=== PATIENT | female | born 1990 | race American Indian/Alaskan Native ===

== ENCOUNTER 2016-07-22 16:28 | Emergency (ER) | payer SELFPAY ==
--- NOTE | 2016-07-22 19:25 | Emergency Department Report ---
HPI - General Chief Complaint: Dental/Oral Time Seen by Provider: 07/22/16 19:24 - HPI HPI: Patient here reports that she has tooth ache to left lower back. And he went to the dentist today and he couldn't pull her tooth because they told her that her blood pressure was elevated at 160/108 and she has to go to the emergency room to get that taken care of. Patient says she was having headache but the headache feels like his Coumadin from her tenderness. Denies any nausea or vomiting her blood pressure in triage is 150/103 . Headache is located to left forehead. The fever itself, neck pain or stiffness. Pain is 10 out of 10 to left lower back to us and headache to 2 out of 10 and achy since that she had a history of high blood pressure in 2014 during her she was preeclamptic but that had resolved after she had a baby. At the time she was on labetalol and Procardia but she has not been on any medication because her blood pressure has been stable. Denies any drooling or sore throat. No chest pain or shortness of breath. No dizziness or visual difficulties. No over-the- counter medication taken for patient ED Past Medical Hx - Past Medical History Previous Medical History?: Yes Hx Hypertension: Yes (PIH) Hx Congestive Heart Failure: No Hx Diabetes: No Hx Deep Vein Thrombosis: No Hx Renal Disease: No Hx Sickle Cell Disease: No Hx Seizures: No Hx Asthma: No Hx COPD: No Hx HIV: No Additional medical history: PREECLAMPSIA with delivery 08/28/2014 - Surgical History Past Surgical History?: Yes Additional Surgical History: CS - Family History Family history: hypertension - Social History Smoking Status: Never Smoker Substance Use Type: None - Medications Home Medications: Home Medications Medication Instructions Recorded Confirmed Last Taken Type Vit #76/Iron,Carb/FA 1 each PO QDAY #30 tablet 04/03/14 09/03/14 1 Day Ago Rx [Prenatabs Rx Tablet] Ferrous Sulfate [Feosol 325 MG tab] 325 mg PO TID #90 tablet 08/28/14 09/03/14 1 Day Ago Rx Fluconazole [Diflucan 200] 200 mg PO QDAY #1 tablet 08/28/14 09/03/14 1 Day Ago Rx Ibuprofen [Motrin 800 MG tab] 800 mg PO Q8HR PRN #90 tablet 08/28/14 09/03/14 1 Day Ago Rx oxyCODONE /ACETAMINOPHEN [Percocet 1 tab PO Q6HR PRN #30 tablet 08/28/14 1 Day Ago Rx 5/325 mg] Labetalol HCl [Trandate TAB] 300 mg PO BID 30 Days 08/31/14 09/03/14 1 Day Ago Rx NIFEdipine XL [Procardia Xl] 60 mg PO QDAY 30 Days 08/31/14 09/03/14 1 Day Ago Rx Acetaminophen/Codeine [Tylenol 1 tab PO Q6H PRN #12 tab 07/22/16 Unknown Rx /Codeine # 3 tab] Amoxicillin [Amoxicillin TAB] 875 mg PO BID #20 tablet 07/22/16 Unknown Rx Ibuprofen [Motrin] 600 mg PO Q8H PRN #15 tablet 07/22/16 Unknown Rx ED Review of Systems ROS: Stated complaint: TOOTH PAIN/ELEVATED BP Other details as noted in HPI Comment: All other systems reviewed and negative Constitutional: denies: chills, fever Eyes: denies: eye pain, eye discharge, vision change ENT: dental pain. denies: ear pain, throat pain, hearing loss, congestion Respiratory: no symptoms reported Cardiovascular: denies: chest pain, palpitations, edema, syncope Gastrointestinal: denies: abdominal pain, nausea, vomiting Musculoskeletal: denies: back pain, arthralgia Skin: denies: rash Neurological: headache. denies: weakness, numbness, paresthesias, confusion, abnormal gait, vertigo Physical Exam - Physical Exam Vital Signs: Vital Signs 07/22/16 17:09 Temperature 98.4 F Pulse Rate 77 Respiratory 16 Rate Blood Pressure 150/103 O2 Sat by Pulse 100 Oximetry Vital Signs 07/22/16 07/22/16 17:09 21:49 Temperature 98.4 F Pulse Rate 77 Respiratory 16 Rate Blood Pressure 150/103 Blood Pressure 146/92 [Left] O2 Sat by Pulse 100 Oximetry General: This is a 26-year-old female well-nourished well-developed in no acute distress. Physical Exam: Head: Normocephalic atraumatic. Mouth: Moist, no pharyngeal exudate or erythema. Uvula is midline and oral airway is patent. No facial swelling. No peritonsillar abscesses. Patient with positive dental caries without any gingival enlargement. Tooth #18 with fracture and cavity. Tender to palpation around tenderness without any cellulitis. No pulp exposure. Neck: Supple, no C-spine tenderness, no tracheal deviation. Nontender to palpate. no adenopathy Abdomen: Soft, nontender to palpate in all quadrants, normal bowel sounds in all quadrant and negative CVA tenderness bilaterally.Back: No vertebral or paraspinal tenderness. No saddle anesthesia. Patient able to ambulate without any difficulties. Negative SLR bilaterally. Neurological: GCS of 15, alert and oriented 3. Speech is clear and fluid. Normal gait. No motor or sensory deficit. Normal reflexes. No facial drooping. No pronator drift and negative Romberg. Eyes: Bilateral pupils equal and reactive to light, bilateral EOM intact. Bilateral sclera and conjunctiva without injection. Normal accommodation. No nystagmus Lungs: Clear to auscultate bilaterally no rhonchi wheezes or rales. Normal work of breathing extremity; No CCE. +2 pulses. No neurovascular compromise Cardiovascular: S1-S2, regular rate rhythm. No murmurs. Skin: clean Dry and intact no rash no lesions Psych: Normal mood and behavior ED Course Vital Signs 07/22/16 17:09 Temperature 98.4 F Pulse Rate 77 Respiratory 16 Rate Blood Pressure 150/103 O2 Sat by Pulse 100 Oximetry Vital Signs 07/22/16 07/22/16 17:09 21:49 Temperature 98.4 F Pulse Rate 77 Respiratory 16 Rate Blood Pressure 150/103 Blood Pressure 146/92 [Left] O2 Sat by Pulse 100 Oximetry - Reevaluation(s) Reevaluation #1: 07/22/16 21:58 Patient blood pressure was stable. She was given Percocet one tablet for dental pain. ED Medical Decision Making - Medical Decision Making ED course: Discussed with patient that her blood pressure was elevated because she was in pain and after given Percocet one tablet 5/325 mg in the emergency room and recheck of her blood pressure blood pressure went down. That she needs to keep a log of her blood pressure and since he did not have a primary care physician to call if outside Medical Center and schedule an appointment to be followed up and a blood pressure readings to primary care visit. I told her if her blood pressure remains elevated and started on medication but for now she does not need blood pressure medication. Discussed the patient and I'll put her on medication for pain and antibiotic. Discharged home in stable condition understanding the diagnosis and treatment plan and discharged home with prescription for Tylenol No. 3, Motrin and amoxicillin Critical care attestation.: If time is entered above; I have spent that time in minutes in the direct care of this critically ill patient, excluding procedure time. ED Disposition Clinical Impression: Toothache, Dental caries, Elevated blood-pressure reading without diagnosis of hypertension Fracture, tooth Qualifiers: Encounter type: initial encounter Fracture type: closed Qualified Code(s): S02.5XXA - Fracture of tooth (traumatic), initial encounter for closed fracture Disposition: - TO HOME OR SELFCARE Is pt being admited?: No Does the pt Need Aspirin: No Condition: Stable Instructions: Heart Healthy Diet (ED), Low Sodium Diet (ED), Hypertension (ED) , Dental Caries (ED), Toothache (ED) Additional Instructions: Do not take Tylenol 3 when he is driving or operating heavy machinery out of this medication will cause drowsiness Please reschedule appointment to see a dentist. Take Antibiotic as prescribed Monitor blood pressure daily and take him [facility] primary care visit. Prescriptions: Acetaminophen/Codeine [Tylenol /Codeine # 3 tab] 1 tab PO Q6H PRN #12 tab PRN Reason: Toothache Amoxicillin [Amoxicillin TAB] 875 mg PO BID #20 tablet Ibuprofen [Motrin] 600 mg PO Q8H PRN #15 tablet PRN Reason: Pain Referrals: Your, Dentist [Other] - 2-3 Days [facility] [Outside] - 07/25/16 Forms: Accompanied Note, Work/School Release Form(ED)
[2016-07-22] MEDS ORDERED: PERCOCET 5/325 PO ONE ×2 (20:54→21:00)
[2016-07-22 21:50] VITALS: BP 146/92
== END 2016-07-22 22:24 | disposition home or self-care (01) ==
LOC: ED 16:28
DX: S02.5XXA Fracture of tooth (traumatic), initial encounter for closed fracture (principal); K02.9 Dental caries, unspecified; K08.89 Other specified disorders of teeth and supporting structures; I10 Essential (primary) hypertension; X58.XXXA Exposure to other specified factors, initial encounter; Y93.89 Activity, other specified; Y99.9 Unspecified external cause status; Y92.89 Other specified places as the place of occurrence of the external cause
CPT/HCPCS: 99282

== ENCOUNTER 2017-09-30 11:16 | Emergency (ER) | payer OTHER ==
[2017-09-30 12:46] LABS: Bilirubin,Urine NEG (Negative); Blood,Urine NEG (Negative); Color,Urine Yellow (Yellow); HCG Qualitative,Urine Positive (Negative); Mucus,Urine 1+ /HPF; Protein,Urine <15 mg/dL mg/dL (Negative); Urobilinogen,Urine < 2.0 mg/dL (<2.0)
--- NOTE | 2017-09-30 13:23 | Emergency Department Report ---
Blank Doc - Documentation Documentation: 27-year-old female with a past medical history of induced hypertension and preeclampsia with last presents with superpubic cramping for the last 2 weeks. Last period was 07/24/2017. She states she took a negative test on 07/28/2017 but hasn't checked since. Patient states that her Mirena was also removed because it was malpositioned. Patient denies fever, dysuria, nausea, vomiting, or vaginal bleeding Urine test positive Labs and ultrasound ordered mid Level to see
[2017-09-30 13:51] LABS: Basophils % (Auto) 0.4 % (0.0-1.8); Eosinophils # (Auto) 0.2 K/mm3 (0.0-0.4); Eosinophils % (Auto) 2.1 % (0.0-4.3); Hematocrit 34.2 % (30.3-42.9); Hemoglobin 11.7 gm/dl (10.1-14.3); Lymphocytes # (Auto) 2.1 K/mm3 (1.2-5.4); Lymphocytes % (Auto) 25.7 % (13.4-35.0); Mean Corpuscular HGB Conc 34 % (30-34); Mean Corpuscular Hemoglobin 29 pg (28-32); Mean Corpuscular Volume 84 fl (79-97); Monocytes # (Auto) 0.5 K/mm3 (0.0-0.8); Monocytes % (Auto) 6.2 % (0.0-7.3); Platelet Count 317 K/mm3 (140-440); Red Blood Count 4.09 M/mm3 (3.65-5.03); Red Cell Distribution Width 13.5 % (13.2-15.2)
--- NOTE | 2017-09-30 13:53 | Emergency Department Report ---
ED Female HPI - General Chief complaint: Abdominal Pain Stated complaint: STOMACH PAIN Time Seen by Provider: 09/30/17 13:08 Source: patient Mode of arrival: Ambulatory Limitations: No Limitations - History of Present Illness Initial comments: This is a 27-year-old -[place] female who presents to the emergency room for abdominal pain for 2 weeks. Last menstrual period 07/25/2007, A0. She is also complaining of vaginal discharge that is white. Patient admits to a past medical history of induced hypertension and preeclampsia with last . She states she took a negative test on 2017 but hasn't checked since. Patient denies current control. Patient denies fever, dysuria, nausea, vomiting, or vaginal bleeding, frequency, and urgency. MD Complaint: pelvic pain Onset/Timin -: week(s) Location: suprapubic Radiation: non-radiating Severity: mild Severity scale (0 -10): 2 Quality: cramping Consistency: intermittent Improves with: none Worsens with: none Are you Now?: No Last Menstrual Period: 07/24/17 EDC: 04/30/18 Associated Symptoms: abdominal pain - Related Data Sexually active: Yes : 2 Para: 2 A: 0 Previous Rx's Medication Instructions Recorded Last Taken Type Vit,Calc76/Iron/Folic 1 each PO QDAY #30 tablet 04/03/14 1 Day Ago Rx [Prenatabs Rx Tablet] ~09/02/14 Ferrous Sulfate [Feosol 325 MG tab] 325 mg PO TID #90 tablet 08/28/14 1 Day Ago Rx ~09/02/14 Fluconazole [Diflucan 200] 200 mg PO QDAY #1 tablet 08/28/14 1 Day Ago Rx ~09/02/14 Ibuprofen [Motrin 800 MG tab] 800 mg PO Q8HR PRN #90 tablet 08/28/14 1 Day Ago Rx ~09/02/14 oxyCODONE /ACETAMINOPHEN [Percocet 1 tab PO Q6HR PRN #30 tablet 08/28/14 1 Day Ago Rx 5/325 mg] ~09/02/14 Labetalol HCl [Trandate TAB] 300 mg PO BID 30 Days tablet 08/31/14 1 Day Ago Rx ~09/02/14 NIFEdipine XL [Procardia Xl] 60 mg PO QDAY 30 Days tablet 08/31/14 1 Day Ago Rx ~09/02/14 Acetaminophen/Codeine [Tylenol 1 tab PO Q6H PRN #12 tab 07/22/16 Unknown Rx /Codeine # 3 tab] Amoxicillin [Amoxicillin TAB] 875 mg PO BID #20 tablet 07/22/16 Unknown Rx Ibuprofen [Motrin] 600 mg PO Q8H PRN #15 tablet 07/22/16 Unknown Rx Pnv,Calcium 72/Iron/Folic Acid 1 each PO DAILY #30 tablet 09/30/17 Unknown Rx [ Plus Tablet] Allergies Allergy/AdvReac Type Severity Reaction Status Date / Time No Known Allergies Allergy Verified 08/27/14 22:58 ED Review of Systems ROS: Stated complaint: STOMACH PAIN Other details as noted in HPI Constitutional: denies: chills, fever Respiratory: denies: cough, shortness of breath, wheezing Cardiovascular: denies: chest pain, palpitations Gastrointestinal: abdominal pain (suprapubic pain). denies: nausea, diarrhea Genitourinary: denies: urgency, dysuria, discharge Musculoskeletal: denies: back pain, joint swelling, arthralgia Neurological: denies: headache, weakness, paresthesias Psychiatric: denies: anxiety, depression ED Past Medical Hx - Past Medical History Previous Medical History?: Yes Hx Hypertension: Yes (PIH) Hx Congestive Heart Failure: No Hx Diabetes: No Hx Deep Vein Thrombosis: No Hx Renal Disease: No Hx Sickle Cell Disease: No Hx Seizures: No Hx Asthma: No Hx COPD: No Hx HIV: No Additional medical history: PREECLAMPSIA with delivery 08/28/2014 - Surgical History Past Surgical History?: Yes Additional Surgical History: x 2 - Social History Smoking Status: Never Smoker Substance Use Type: None - Medications Home Medications: Home Medications Medication Instructions Recorded Confirmed Last Taken Type Vit,Calc76/Iron/Folic 1 each PO QDAY #30 tablet 04/03/14 09/03/14 1 Day Ago Rx [Prenatabs Rx Tablet] ~09/02/14 Ferrous Sulfate [Feosol 325 MG tab] 325 mg PO TID #90 tablet 08/28/14 09/03/14 1 Day Ago Rx ~09/02/14 Fluconazole [Diflucan 200] 200 mg PO QDAY #1 tablet 08/28/14 09/03/14 1 Day Ago Rx ~09/02/14 Ibuprofen [Motrin 800 MG tab] 800 mg PO Q8HR PRN #90 tablet 08/28/14 09/03/14 1 Day Ago Rx ~09/02/14 oxyCODONE /ACETAMINOPHEN [Percocet 1 tab PO Q6HR PRN #30 tablet 08/28/14 1 Day Ago Rx 5/325 mg] ~09/02/14 Labetalol HCl [Trandate TAB] 300 mg PO BID 30 Days tablet 08/31/14 09/03/14 1 Day Ago Rx ~09/02/14 NIFEdipine XL [Procardia Xl] 60 mg PO QDAY 30 Days tablet 08/31/14 09/03/14 1 Day Ago Rx ~09/02/14 Acetaminophen/Codeine [Tylenol 1 tab PO Q6H PRN #12 tab 07/22/16 Unknown Rx /Codeine # 3 tab] Amoxicillin [Amoxicillin TAB] 875 mg PO BID #20 tablet 07/22/16 Unknown Rx Ibuprofen [Motrin] 600 mg PO Q8H PRN #15 tablet 07/22/16 Unknown Rx Pnv,Calcium 72/Iron/Folic Acid 1 each PO DAILY #30 tablet 09/30/17 Unknown Rx [ Plus Tablet] ED Physical Exam - General Limitations: No Limitations General appearance: alert, in no apparent distress - Respiratory Respiratory exam: Present: normal lung sounds bilaterally. Absent: respiratory distress - Cardiovascular Cardiovascular Exam: Present: regular rate, normal rhythm. Absent: systolic murmur, diastolic murmur, rubs, gallop - GI/Abdominal GI/Abdominal exam: Present: soft, normal bowel sounds - Back Exam Back exam: Present: normal inspection - Neurological Exam Neurological exam: Present: alert, oriented X3 - Psychiatric Psychiatric exam: Present: normal affect, normal mood - Skin Skin exam: Present: warm, dry, intact, normal color. Absent: rash ED Course Vital Signs 09/30/17 11:32 Temperature 98.2 F Pulse Rate 87 Respiratory 18 Rate Blood Pressure 138/86 O2 Sat by Pulse 100 Oximetry ED Medical Decision Making - Lab Data Result diagrams: 09/30/17 13:31 Lab Results 09/30/17 09/30/17 09/30/17 Range/Units 11:50 13:31 13:31 WBC 8.3 (4.5-11.0) K/mm3 RBC 4.09 (3.65-5.03) M/mm3 Hgb 11.7 (10.1-14.3) gm/dl Hct 34.2 (30.3-42.9) % MCV 84 (79-97) fl MCH 29 (28-32) pg MCHC 34 (30-34) % RDW 13.5 (13.2-15.2) % Plt Count 317 (140-440) K/mm3 Lymph % (Auto) 25.7 (13.4-35.0) % [place] % (Auto) 6.2 (0.0-7.3) % Eos % (Auto) 2.1 (0.0-4.3) % Baso % (Auto) 0.4 (0.0-1.8) % Lymph # 2.1 (1.2-5.4) K/mm3 [place] # 0.5 (0.0-0.8) K/mm3 Eos # 0.2 (0.0-0.4) K/mm3 Baso # 0.0 (0.0-0.1) K/mm3 Seg Neutrophils % 65.6 (40.0-70.0) % Seg Neutrophils # 5.4 (1.8-7.7) K/mm3 HCG, Quant 97470 H (0-4) mIU/mL Urine Color Yellow (Yellow) Urine Turbidity Slightly-cloudy (Clear) Urine pH 6.0 (5.0-7.0) Ur Specific [place] 1.025 (1.003-1.030) Urine Protein <15 mg/dl (Negative) mg/dL Urine Glucose (UA) Neg (Negative) mg/dL Urine Ketones Neg (Negative) mg/dL Urine Blood Neg (Negative) Urine Nitrite Neg (Negative) Urine Bilirubin Neg (Negative) Urine Urobilinogen < 2.0 (<2.0) mg/dL Ur Leukocyte Esterase Neg (Negative) Urine WBC (Auto) 2.0 (0.0-6.0) /HPF Urine RBC (Auto) 1.0 (0.0-6.0) /HPF U Epithel Cells (Auto) 5.0 (0-13.0) /HPF Urine Mucus 1+ /HPF Urine HCG, Qual Positive A (Negative) - Radiology Data Radiology results: report reviewed, image reviewed FINAL REPORT EXAM: US OB lt; = 14 WEEKS FETUS HISTORY: pelvic cramps, + upt TECHNIQUE: Transabdominal sonography of the pelvis. PRIORS: None. FINDINGS: There is a single, live intrauterine . Ultrasound estimated gestational age is 10 weeks 0 days. Ultrasound estimated date of confinement is 28 April 2018. heart motion is detected. The right ovary measures 2.2 x 1.5 x 1.4 cm and is grossly unremarkable. The left ovary measures 2.0 x 1.5 x 2.2 cm and is grossly unremarkable. Remainder of uterus and adnexa grossly unremarkable. IMPRESSION: 1. Single, live intrauterine . - Medical Decision Making This is a 27 y.o. female presents with lower abdominal cramping for 2 weeks. Patient was examined by me and Dr. Mcclendon. Vitals are normal and patient is in no acute distress. Obtained labs and OB ultrasound. Quant [id number] all other labs unremarkable. 1. Single, live intrauterine . Patient instructed to follow up with [facility]. Patient discharged home in stable condition. Start vitamins. She'll give her referrals to [facility] for follow-up. Critical care attestation.: If time is entered above; I have spent that time in minutes in the direct care of this critically ill patient, excluding procedure time. ED Disposition Clinical Impression: Abdominal cramping affecting , confirmed by positive blood test Disposition: DC-01 TO HOME OR SELFCARE Is pt being admited?: No Does the pt Need Aspirin: No Condition: Stable Instructions: (ED) Additional Instructions: Follow up with [facility] in 24-48 hours. Return to ER if increased vaginal bleeding, abdominal pain, and low back pain. Prescriptions: Pnv,Calcium 72/Iron/Folic Acid [ Plus Tablet] 1 each PO DAILY #30 tablet Referrals: [facility] [Provider Group] - 3-5 Days [facility] [Provider Group] - 3-5 Days Forms: Work/School Release Form(ED) Time of Disposition: 16:46 Print Language: KHMER
--- NOTE | 2017-09-30 16:22 | Ultrasound Report ---
FINAL REPORT EXAM: US OB < = 14 WEEKS FETUS HISTORY: pelvic cramps, + upt TECHNIQUE: Transabdominal sonography of the pelvis. PRIORS: None. FINDINGS: There is a single, live intrauterine . Ultrasound estimated gestational age is 10 weeks 0 days. Ultrasound estimated date of confinement is 28 April 2018. heart motion is detected. The right ovary measures 2.2 x 1.5 x 1.4 cm and is grossly unremarkable. The left ovary measures 2.0 x 1.5 x 2.2 cm and is grossly unremarkable. Remainder of uterus and adnexa grossly unremarkable. IMPRESSION: 1. Single, live intrauterine .
[2017-09-30 17:10] VITALS: BP 126/82
== END 2017-09-30 17:09 | disposition home or self-care (01) ==
LOC: ED 11:16
DX: R10.30 Lower abdominal pain, unspecified (principal); N89.8 Other specified noninflammatory disorders of vagina; Z33.1 Pregnant state, incidental; I10 Essential (primary) hypertension
CPT/HCPCS: 36415; 76801; 81001; 81025; 84702; 85025; 99284

== ENCOUNTER 2018-04-11 23:47 | Outpatient (CLI) | payer MEDICAID ==
[2018-04-12] MEDS ORDERED: LACTATED RINGERS 0 ML ONE (00:52)
[2018-04-12 01:02] LABS: Bacteria,Urine 1+ /HPF (Negative); Bilirubin,Urine NEG (Negative); Blood,Urine NEG (Negative); Calcium Oxalate Crystals,Urine 1+; Color,Urine Yellow (Yellow); Mucus,Urine 2+ /HPF
[2018-04-12 01:06] LABS: Hemoglobin 10.1 gm/dl (10.1-14.3); Mean Corpuscular HGB Conc 35 % (30-34); Mean Corpuscular Volume 84 fl (79-97); Platelet Count 331 K/mm3 (140-440); Red Blood Count 3.46 M/mm3 (3.65-5.03); Red Cell Distribution Width 13.7 % (13.2-15.2)
[2018-04-12 02:15] LABS: Uric Acid 5.4 mg/dL (3.5-7.6)
[2018-04-12] MEDS ORDERED: TYLENOL #3 PO STA (02:35)
[2018-04-12 03:01] VITALS: BP 133/65
--- NOTE | 2018-04-12 03:36 | Progress Note ---
Assessment and Plan A: at 37 weeks, 3 days gestation. Headache, resolved. Negative Pre-eclamptic labs. Reactive NST. P: Advised pt. to collect 24 hour urine today (patient has jug at home). Advised her to return it to office tomorrow and also have a blood pressure check and visit at the office tomorrow ([facility]). Discussed BP and PreE warning signs with patient in detail. Pt. is to rest at home. Consulted with Dr. Wolff regarding this patient and he states it is OK for patient to go home and collect 24 hour urine at home today. Advised pt. to return promptly if any problems. Subjective - Subjective Date of service: 04/12/18 Principal diagnosis: at 37 weeks, 3 days gestation; headache Interval history: 27 year old presents to L&D triage complaining of headache which completely resolved while here in triage today. Patient states headache was frontal and mild. Patient has been receiving care at [facility] and states she is scheduled for repeat C/S on 04/23/18 (history of 2 previous C/S). Patient denies leaking of fluid or vaginal bleeding. She denies abdominal pain, contractions, or nausea/vomiting. Patient reports active movement. Patient declined any medication for headache since she states it has resolved spontaneously. Patient reports: movement normal, no loss of fluid, no vaginal bleeding, no contractions Objective - Vital Signs Vital Signs: Vital Signs - 12hr 04/12/18 04/12/18 04/12/18 00:07 00:20 00:23 Temperature 98.2 F Pulse Rate 104 H 102 H Respiratory 18 Rate Blood Pressure 142/87 130/90 04/12/18 04/12/18 04/12/18 00:38 00:56 01:14 Temperature Pulse Rate 108 H 112 H 104 H Respiratory Rate Blood Pressure 130/67 122/76 125/77 04/12/18 04/12/18 04/12/18 01:28 01:59 02:14 Temperature Pulse Rate 102 H 94 H 96 H Respiratory Rate Blood Pressure 118/76 119/71 121/69 04/12/18 04/12/18 04/12/18 02:29 02:44 02:59 Temperature Pulse Rate 93 H 100 H 100 H Respiratory Rate Blood Pressure 122/70 120/75 133/65 - Exam Narrative Exam: Pre-eclamptic labs negative. Headache resolved while pt. was in triage. Abdomen: Present: normal appearance, soft. Absent: distention, tenderness, guarding, rigidity Uterus: Present: normal, fundal height above umbilicus. Absent: tenderness FHR: category 1 Uterine Contraction Monitor Mode: External Uterine Contraction Pattern: Absent Extremities: normal (no edema or tenderness) - Labs Labs: Abnormal Labs 04/12/18 04/12/18 00:32 00:55 RBC 3.46 L Hct 29.0 L MCHC 35 H Urine WBC (Auto) 8.0 H Laboratory Results - last 24 hr 04/12/18 04/12/18 04/12/18 00:32 00:55 00:55 WBC 9.5 RBC 3.46 L Hgb 10.1 Hct 29.0 L MCV 84 MCH 29 MCHC 35 H RDW 13.7 Plt Count 331 Creatinine Estimated GFR Uric Acid 5.4 AST 17 ALT 10 Lactate Dehydrogenase 166 Urine Color Yellow Urine Turbidity Clear Urine pH 6.0 Ur Specific [place] 1.026 Urine Protein 30 mg/dl Urine Glucose (UA) Neg Urine Ketones Tr Urine Blood Neg Urine Nitrite Neg Urine Bilirubin Neg Urine Urobilinogen 4.0 Ur Leukocyte Esterase Tr Urine WBC (Auto) 8.0 H Urine RBC (Auto) 1.0 U Epithel Cells (Auto) 2.0 Urine Bacteria (Auto) 1+ Calcium Oxalate Crystal 1+ Urine Mucus 2+ 04/12/18 00:55 WBC RBC Hgb Hct MCV MCH MCHC RDW Plt Count Creatinine 0.8 Estimated GFR > 60 Uric Acid AST ALT Lactate Dehydrogenase Urine Color Urine Turbidity Urine pH Ur Specific [place] Urine Protein Urine Glucose (UA) Urine Ketones Urine Blood Urine Nitrite Urine Bilirubin Urine Urobilinogen Ur Leukocyte Esterase Urine WBC (Auto) Urine RBC (Auto) U Epithel Cells (Auto) Urine Bacteria (Auto) Calcium Oxalate Crystal Urine Mucus
== END 2018-04-12 03:08 | disposition home or self-care (01) ==
LOC: TRG 23:47
PROVIDERS: ATTEND Obstetrics & Gynecology
DX: O47.03 False labor before 37 completed weeks of gestation, third trimester (principal); O13.3 Gestational [pregnancy-induced] hypertension without significant proteinuria, third trimester; Z3A.37 37 weeks gestation of pregnancy
CPT/HCPCS: 36415; 59025; 81001; 82565; 83615; 84450; 84460; 84550; 85027; J7120

== ENCOUNTER 2018-04-24 05:34 | Inpatient (IN) | payer MEDICAID ==
[2018-04-24] MEDS ORDERED: LACTATED RINGERS 2,000 ML ONE (05:53)
[2018-04-24] MEDS ORDERED: PEPCID IV ONE (06:02)
[2018-04-24] MEDS ORDERED: REGLAN IV ONE (06:02)
[2018-04-24] MEDS ORDERED: BICITRA PO ONE (06:02)
[2018-04-24 06:13] LABS: Basophils # (Auto) 0.1 K/mm3 (0.0-0.1); Basophils % (Auto) 0.8 % (0.0-1.8); Eosinophils # (Auto) 0.1 K/mm3 (0.0-0.4); Eosinophils % (Auto) 1.2 % (0.0-4.3); Hematocrit 30.2 % (30.3-42.9); Hemoglobin 10.2 gm/dl (10.1-14.3); Lymphocytes # (Auto) 2.2 K/mm3 (1.2-5.4); Mean Corpuscular HGB Conc 34 % (30-34); Mean Corpuscular Volume 82 fl (79-97); Monocytes # (Auto) 0.9 K/mm3 (0.0-0.8); Monocytes % (Auto) 9.1 % (0.0-7.3); Platelet Count 319 K/mm3 (140-440); Red Blood Count 3.66 M/mm3 (3.65-5.03); Red Cell Distribution Width 13.7 % (13.2-15.2)
[2018-04-24] MEDS: LACTATED RINGERS 1,000 ML IV SCH ×2 (06:19→07:15)
[2018-04-24] MEDS ORDERED: PITOCin/NS 20 UNIT/1000ML DRIP 20 UNITS/1,000 ML BAG IV SCH ×2 (07:00→10:00)
[2018-04-24] MEDS ORDERED: ANCEF/STERILE WATER 2 GM/20 ML 2 GM/20 ML SYRINGE IV NR (07:00)
[2018-04-24] MEDS ORDERED: ZOFRAN IV PRN (07:20)
[2018-04-24] MEDS ORDERED: PHENERGAN PO PRN (07:20)
[2018-04-24] MEDS ORDERED: DILAUDID IV PRN ×2 (07:20)
[2018-04-24] MEDS ORDERED: PHENERGAN PR PRN (07:20)
[2018-04-24] MEDS ORDERED: NARCAN 0.4 MG/1 ML IV PRN (07:20)
[2018-04-24] MEDS ORDERED: BENADRYL IV PRN (07:20)
--- NOTE | 2018-04-24 07:20 | Anesthesia Day of Surgery ---
Anesthesia Day of Surgery - Day of Surgery Patient Examined: Yes Patient H&P Reviewed: Yes Patient is NPO: Yes
--- NOTE | 2018-04-24 07:20 | Anesthesia Consultation ---
Anesthesia Consult and Med Hx Date of service: 04/24/18 - Airway Anesthetic Teeth Evaluation: Good, Chipped (#1 and #9) ROM Head & Neck: Adequate Mental/Hyoid Distance: Adequate Mallampati Class: Class II Intubation Access Assessment: Probably Good - Pre-Operative Health Status ASA Pre-Surgery Classification: ASA2 Proposed Anesthetic Plan: Epidural, Spinal - Pulmonary Hx Asthma: No COPD: No Hx Pneumonia: No - Cardiovascular System Hx Hypertension: Yes (gestational) - Central Nervous System Hx Seizures: No Hx Psychiatric Problems: No - Endocrine Hx Renal Disease: No Hx End Stage Renal Disease: No Hx Hypothyroidism: No Hx Hyperthyroidism: No - Hematic Hx Anemia: Yes Hx Sickle Cell Disease: No - Other Systems Hx Alcohol Use: Yes (occasional) Hx Obesity: Yes (BMI 37)
--- NOTE | 2018-04-24 07:49 | History and Physical Report ---
History of Present Illness Date of admission: 04/24/18 05:34 Chief complaint: scheduled repeat section History of present illness: 28yo 39 1/7 weeks ANKUR 04/30/18 presents for scheduled repeat section. She reports good movement, no loss of fluid and no vaginal bleeding. She is a patient at [facility] since 12 weeks gestation. Her has been complicated by chronic hypertension -mild. She has history of preeclampsia with severe features and has been maintained on ASA 81mg this . Past History Past Surgical History: section - Obstetrical History Expected Date of Delivery: 04/30/18 Actual Gestation: 39 Week(s) 1 Day(s) : 3 Number of Living Children: 2 Medications and Allergies Allergies Allergy/AdvReac Type Severity Reaction Status Date / Time No Known Allergies Allergy Verified 04/24/18 06:25 Home Medications Medication Instructions Recorded Confirmed Last Taken Type Aspirin [Aspirin EC] 1 tab PO DAILY 04/12/18 04/24/18 04/20/18 History Formula Tablet 1 tab PO DAILY 04/12/18 04/24/18 04/23/18 History Active Meds: Active Medications Diphenhydramine HCl (Benadryl) 12.5 mg IV Q2H PRN PRN Reason: Itching Hydromorphone HCl (Dilaudid) 0.5 mg IV Q5M PRN PRN Reason: Breakthrough Pain Stop: 04/24/18 16:00 Hydromorphone HCl (Dilaudid) 0.5 mg IV Q4H PRN PRN Reason: breakthrough pain > 7/10 Lactated Ringer's (Lactated Ringers) 1,000 mls @ 2,250 mls/hr IV PREOP JHOAN Stop: 04/25/18 07:27 Last Admin: 04/24/18 07:15 Dose: 2,250 mls/hr Documented by: Oxytocin/Sodium Chloride (Pitocin/Ns 20 Unit/1000ml Drip) 20 units in 1,000 mls @ 0 mls/hr IV TITR JHOAN Naloxone HCl (Narcan 0.4 Mg/1 Ml) 0.2 mg IV Q2MIN PRN PRN Reason: Res Rate </= 8 or 02 SAT < 92% Ondansetron HCl (Zofran) 4 mg IV Q8H PRN PRN Reason: Nausea And Vomiting Promethazine HCl (Phenergan) 25 mg PO Q6H PRN PRN Reason: Nausea And Vomiting Promethazine HCl (Phenergan) 25 mg LA Q6H PRN PRN Reason: Nausea And Vomiting Sodium Chloride (Sodium Chloride Flush Syringe 10 Ml) 10 ml IV PRN NR Stop: 04/26/18 23:59 - Vital Signs Vital signs: Vital Signs Pulse BP 93 H 135/87 04/24/18 06:17 04/24/18 06:17 Temp Pulse Resp BP Pulse Ox 97.8 F 85 18 119/75 04/24/18 06:24 04/24/18 06:47 04/24/18 06:24 04/24/18 06:47 - Obstetrical FHR: category 1 Results Result Diagrams: 04/24/18 06:00 Abnormal lab results 04/24/18 Range/Units 06:00 Hct 30.2 L (30.3-42.9) % [place] % (Auto) 9.1 H (0.0-7.3) % [place] # 0.9 H (0.0-0.8) K/mm3 All other labs normal. Assessment and Plan - Patient Problems (1) 39 weeks gestation of Current Visit: Yes Status: Acute Plan to address problem: IVF Routine labs CASSIUS Anceg 2gIV Risks, benefits and alternatives to repeat cesection discussed and informed consent signed. Proceed to OR. (2) Anemia Current Visit: Yes Status: Acute Plan to address problem: Chronic anemia - continue iron sulfate (3) Chronic hypertension Current Visit: Yes Status: Acute Plan to address problem: well controlled - no medications (4) Previous section Current Visit: Yes Status: Acute
[2018-04-24] MEDS ORDERED: WATER FOR IRRIG STERILE IR ONE (08:00)
[2018-04-24] MEDS ORDERED: SODIUM CHLORIDE FLUSH SYRINGE 10 ML IV NR ×2 (08:00→10:00)
[2018-04-24] MEDS ORDERED: NACL 0.9% IR ONE (08:00)
[2018-04-24] MEDS ORDERED: ANCEF/STERILE WATER 2 GM/20 ML IV ONE (08:20)
[2018-04-24] MEDS ORDERED: NEO SYNEPHRINE/NS Syringe(OR USE) IV ONE (08:24)
[2018-04-24] MEDS ORDERED: LACTATED RINGERS 1,000 ML ONE (08:25)
[2018-04-24] MEDS ORDERED: XYLOCAINE MPF 2% ONE (09:03)
[2018-04-24] MEDS ORDERED: DILAUDID ONE (09:24)
[2018-04-24] MEDS ORDERED: NACL 0.9% 1000 ML 1,000 ML ONE (09:40)
--- NOTE | 2018-04-24 09:53 | Operative Report ---
Operative Report Operative Report: DATE OF OPERATION 04/24/18 PREOP Diagnosis 1. 39 1/7 weeks gestation 2. Previous section 3. Chronic hypertension 4. History of preeclampsia PREOP Diagnosis 1. 39 1/7 weeks gestation 2. Previous section 3. Chronic hypertension 4. History of preeclampsia Procedure: Repeat low-transverse section Findings 1. Viable male in the compound presentation (vertex and left hand), occiput posterior position, weighing 8lb 1oz, 3667g APGARS 8 at 1 min, 9 at 5 min 2. Normal uterus bilateral ovaries and tubes Surgeon 1. Zenia Santoro MD Anesthesia: 1. Epidural I/O: EBL: 700ml UOP: 100ml, clear urine IVF 1800ml LR Specimens removed: 1. Placenta Complications: none Disposition: Patient taken to recovery room in stable condition INDICATIONS: The patient is a 28yo at 39 1/7weeks the presented for scheduled repeat section. The patient was consented and the risks including but not limited to bleeding, infections, injury to surrounding organs, potential injury to mother/infant were discussed. All questions were answered and informed consent signed. She was offered and declined a tubal sterilization. PROCEDURE: The patient was taken to the OR in stable condition. Adequate anesthesia was achieved with epidural anesthesia. A haines catheter was placed. She wore SCDs for DVT prophylaxis. And received Ancef for infection prophylaxis. The patient was prepped and draped in a sterile fashion and an additional time out was done. A Pfannestiel incision was made over the previous uterine scar. The fascia was incised and the incision extended laterally. The superior and inferior aspect of the rectus muscle was dissected off of the fascia. Entry into the peritoneum was achieved. The incision was extended cranial and caudally. An Benito-O rectractor was placed into the peritoneal cavity. A low-transverse incision made made in the uterus and extended laterally. membranes were ruptured and noted to be clear. The vertex was brought to the hysterotomy. A compound presentation was noted. The left hand was reduced into the uterus and head delivered. The body was delivered the infant was bulb suctioned. The cord was clamped x 2, cut and handed off to awaiting party plan demonstrator staff. The placenta was delivered intact and 20 units of IV Pitocin were added to LR fluids. The uterus was cleaned of all clots. The uterus was repaired with 0- Vicryl in a running, locked stitch and an imbricating layer of the same suture was used. The rectus and peritoneum was repaired with 2-0 Vicryl. The fascia was closed with 0 Vicryl. The subcutaneous layer reapproximated with 3-0 Vicryl and the skin was closed with 4-0 Vicryl. The patient tolerated the procedure well. All counts were correct x 3. Urine was noted to be clear at close of case. I was present and scrubbed for the entire procedure. The patient was taken to the recovery room in stable condition.
[2018-04-24] MEDS ORDERED: MYLICON PO PRN (09:54)
[2018-04-24] MEDS ORDERED: TUCKS PAD TP PRN (09:54)
[2018-04-24] MEDS ORDERED: TYLENOL PO PRN (09:54)
[2018-04-24] MEDS ORDERED: LANSINOH TP PRN (09:54)
[2018-04-24] MEDS ORDERED: MILK OF MAGNESIA PO PRN (09:54)
[2018-04-24] MEDS: IBUPROFEN PO PRN ×2 (11:31→20:50)
--- NOTE | 2018-04-24 12:44 | Post Anesthesia Evaluation ---
- Post Anesthesia Evaluation Patient Participated: Yes Airway Patent: Yes Stable Respiratory Function: Yes Nausea/Vomiting: No Temp > 96.8F: Yes Pain Manageable: Yes Adequeate Hydration: Yes Anesthesia Complications: No Block Receding Appropriately: Yes Patient on Ventilator: No
[2018-04-24] MEDS: PERCOCET 5/325 PO PRN ×2 (13:20→20:50)
[2018-04-24 22:39] LABS: Hematocrit 25.7 % (30.3-42.9); Hemoglobin 8.7 gm/dl (10.1-14.3)
[2018-04-25] MEDS: PERCOCET 5/325 PO PRN ×3 (03:27→21:50)
[2018-04-25] MEDS: IBUPROFEN PO PRN ×3 (03:30→21:51)
--- NOTE | 2018-04-25 11:40 | Progress Note ---
Assessment and Plan A: /postop day 1 S/P repeat low transverse section. Anemia secondary to and blood loss. P: Supplement with iron. Encouraged ambulation. Subjective - Subjective Date of service: 04/25/18 Principal diagnosis: /postop day 1 S/P repeat low transverse section Interval history: /postop day 1 S/P repeat low transverse section. Patient is doing well. She reports small amount of lochia. She is voiding without difficulty, passing gas, tolerating a regular diet without nausea or vomiting, and ambulating well. Patient denies headache, chest pain, cough, shortness of breath, abdominal pain, leg pain, heavy vaginal bleeding, nausea or vomiting, or any other problems. Patient reports: appetite normal, voiding normally, pain well controlled, flatus, ambulating normally, no dizzy ambulation, no nauseated : doing well Objective - Vital Signs Latest vital signs: Vital Signs Temp Pulse Resp BP BP 04/25/18 04:30 98.6 F 74 18 112/74 04/24/18 23:30 98.7 F 74 18 109/67 04/24/18 14:53 98.5 F 18 136/83 Intake and Output 04/24/18 04/25/18 04/25/18 23:59 07:59 15:59 Intake Total 200 300 Output Total 2600 2200 Balance -2400 -1900 Intake: Oral 200 Intake, Free Water 300 Output: Urine 2600 2200 Indwelling Catheter 1900 Void 2200 Other: Total, Intake Amount 200 Total, Output Amount 1200 800 Voiding Method Indwelling Catheter # Voids 1 Indwelling Catheter 1 Void 1 - Exam Cardiovascular: Present: Regular rate, Normal S1, Normal S2 Lungs: Present: Clear to auscultation Abdomen: Present: normal appearance, soft, normal bowel sounds. Absent: distention, tenderness, guarding, rigidity Uterus: Present: normal, firm, fundal height below umbilicus. Absent: bogginess, tenderness Extremities: Present: normal, edema (mild bilateral pedal edema). Absent: tenderness Incision: Present: normal, dry, intact, dressed - Labs Labs: Abnormal lab results 04/24/18 Range/Units 22:02 Hgb 8.7 L (10.1-14.3) gm/dl Hct 25.7 L (30.3-42.9) %
[2018-04-25] MEDS: FEOSOL PO SCH (13:01)
[2018-04-26] MEDS: FEOSOL PO SCH (13:50)
[2018-04-26] MEDS: IBUPROFEN PO PRN ×2 (13:50→20:42)
[2018-04-26] MEDS: PERCOCET 5/325 PO PRN (15:01)
--- NOTE | 2018-04-26 23:28 | Progress Note ---
Assessment and Plan A: /postop day 2 S/P repeat low transverse section. Anemia secondary to and blood loss. P: Continue iron supplementation. Continue current management. Subjective - Subjective Date of service: 04/26/18 Principal diagnosis: /postop day 2 S/P repeat low transverse section Interval history: /postop day 2 S/P repeat low transverse section. Patient is doing well. She reports small amount of lochia. She is voiding without difficulty, passing gas, tolerating a regular diet without nausea or vomiting, and ambulating well. Patient denies headache, chest pain, cough, shortness of breath, abdominal pain, leg pain, heavy vaginal bleeding, nausea or vomiting, or any other problems. Patient reports: appetite normal, voiding normally, pain well controlled, flatus, ambulating normally, no dizzy ambulation, no bowel movement, no nauseated : doing well Objective - Vital Signs Latest vital signs: Vital Signs Temp Pulse Resp BP 04/26/18 21:42 18 04/26/18 20:42 20 04/26/18 16:16 97.8 F 73 18 124/78 04/26/18 08:11 98.4 F 80 18 119/73 04/26/18 00:00 98.2 F 75 18 117/72 Intake and Output 04/26/18 04/26/18 04/26/18 07:59 15:59 23:59 Intake Total 240 840 240 Balance 240 840 240 Intake: Oral 360 240 Intake, Free Water 240 480 Other: Total, Intake Amount 120 240 # Voids Void 1 1 - Exam Abdomen: Present: normal appearance, soft. Absent: distention, tenderness, guarding, rigidity Vulva: right: atrophy Uterus: Present: normal, firm, fundal height below umbilicus. Absent: bogginess, tenderness Extremities: Present: normal, edema (bilateral lower extremity edema). Absent: tenderness Incision: Present: normal, dry, intact
[2018-04-27] MEDS: PERCOCET 5/325 PO PRN (08:42)
[2018-04-27 11:19] LABS: Bilirubin,Urine NEG (Negative); Blood,Urine SM (Negative); Color,Urine Yellow (Yellow); Mucus,Urine FEW /HPF; Protein,Urine <15 mg/dL mg/dL (Negative); Urobilinogen,Urine < 2.0 mg/dL (<2.0)
[2018-04-27] MEDS: FEOSOL PO SCH ×2 (11:24→22:49)
--- NOTE | 2018-04-27 13:54 | Progress Note ---
Assessment and Plan - Patient Problems (1) S/P repeat low transverse Current Visit: Yes Status: Acute Plan to address problem: - POD #3 - unstable - Continue routine postop orders - Ambulation encouraged, as tolerated - Discharge to home in 24 hours pending lab results and patient condition (2) Anemia due to blood loss, acute Current Visit: Yes Status: Acute Plan to address problem: - C/O headache. Denies fatigue, dizziness, SOB, or palpitations - Continue iron therapy with Ferrous sulfate 325mg PO BID (3) Chronic hypertension Current Visit: Yes Status: Acute Plan to address problem: - BPs initially stable but elevated this AM (141/90, 141/86) - h/o severe pre-eclampsia - PIH labs ordered - Labetalol 100mg PO BID initiated (4) Headache Current Visit: No Status: Acute Plan to address problem: Continue with current pain management Subjective - Subjective Date of service: 04/27/18 Principal diagnosis: POD #3; s/p Repeat LTCS, Chronic HTN Interval history: see H&P, Operative Report and PP/R[employer]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 Denies visual disturbances or RUQ pain), no dizzy ambulation, no nauseated [place]: doing well, bottle feeding Objective - Vital Signs Latest vital signs: Vital Signs Temp Pulse Resp BP BP Pulse Ox 04/27/18 11:11 78 141/86 97 04/27/18 09:08 98.7 F 77 20 141/90 97 04/26/18 21:42 18 04/26/18 20:42 20 04/26/18 16:16 97.8 F 73 18 124/78 Intake and Output 04/26/18 04/27/18 04/27/18 23:59 07:59 15:59 Intake Total 240 Balance 240 Intake: Oral 240 Other: Total, Intake Amount 240 - Exam Cardiovascular: Present: Regular rate Lungs: Present: Clear to auscultation Abdomen: Present: normal appearance, soft Vulva: both: normal Uterus: Present: normal, firm, fundal height below umbilicus Extremities: Present: normal Incision: Present: normal, dry, intact (steri strips in place) Comments: scant lochia
[2018-04-27] MEDS ORDERED: NORMODYNE PO SCH (14:00)
[2018-04-27 14:24] LABS: Hematocrit 25.2 % (30.3-42.9); Hemoglobin 8.7 gm/dl (10.1-14.3); Mean Corpuscular HGB Conc 35 % (30-34); Mean Corpuscular Volume 83 fl (79-97); Platelet Count 334 K/mm3 (140-440); Red Blood Count 3.04 M/mm3 (3.65-5.03); Red Cell Distribution Width 13.7 % (13.2-15.2)
[2018-04-27 14:37] LABS: Alanine Aminotransferase 20 units/L (7-56); Uric Acid 6.5 mg/dL (3.5-7.6)
[2018-04-27] MEDS ORDERED: MAGNESIUM SULFATE 4GM/100ML 4 GM/100 ML BAG IV ONE (15:26)
--- NOTE | 2018-04-27 15:33 | Progress Note ---
Assessment and Plan - Patient Problems (1) 39 weeks gestation of Current Visit: Yes Status: Acute (2) delivery, delivered, current hospitalization Current Visit: No Status: Acute (3) Eclampsia superimposed on pre-existing hypertension, delivered Current Visit: Yes Status: Acute Plan to address problem: Will start magnesium sulfate loading dose and maintenance at 2gm/hr. Monitor Mg levels, urine output, DTRs. Monitor BP. Continue labetolol 200 mg BID. Subjective - Subjective Date of service: 04/27/18 Principal diagnosis: POD #3; s/p Repeat LTCS, Chronic HTN Interval history: Patient is a 28 year old who is S/P elective repeat C/section 3 days ago. She has a history of CHTN and her BP was stable during the until 36 weeks. On admission, toxemia labs were normal and her BP was elevated but stable. Since last night, her BP became elevated in the 150's/90-100's and she's been complaining of having headache. She denies any blurry vision or RUQ pain. Toxemia labs showed elevated LFTs. DTRs are +3 in all extremities. Objective - Vital Signs Latest vital signs: Vital Signs Temp Pulse Resp BP BP Pulse Ox 04/27/18 11:11 78 141/86 97 04/27/18 09:08 98.7 F 77 20 141/90 97 04/26/18 21:42 18 04/26/18 20:42 20 04/26/18 16:16 97.8 F 73 18 124/78 Intake and Output 04/26/18 04/27/18 04/27/18 23:59 07:59 15:59 Intake Total 240 Balance 240 Intake: Oral 240 Other: Total, Intake Amount 240 - Exam Cardiovascular: Present: Normal S1, Normal S2 Lungs: Present: Clear to auscultation Vulva: both: normal Deep Tendon Reflex Grade: Normal but brisk +3 - Labs Labs: Abnormal lab results 04/27/18 04/27/18 Range/Units 13:58 13:58 RBC 3.04 L (3.65-5.03) M/mm3 Hgb 8.7 L (10.1-14.3) gm/dl Hct 25.2 L (30.3-42.9) % MCHC 35 H (30-34) % Lactate Dehydrogenase 289 H (91-180) units/L
[2018-04-27] MEDS: IBUPROFEN PO PRN (15:36)
[2018-04-27] MEDS ORDERED: LACTATED RINGERS 1,000 ML ONE (17:41)
[2018-04-27] MEDS ORDERED: LACTATED RINGERS 1,000 ML IV SCH (18:00)
[2018-04-27] MEDS: MAGNESIUM SULFATE 40GM/1000ML 40 GM/1,000 ML BAG IV SCH (18:45)
[2018-04-27] MEDS: NORMODYNE PO SCH (22:49)
[2018-04-28] MEDS: IBUPROFEN PO PRN ×2 (00:02→15:38)
[2018-04-28] MEDS: FEOSOL PO SCH (10:43)
[2018-04-28] MEDS: NORMODYNE PO SCH ×2 (10:44→22:44)
--- NOTE | 2018-04-28 15:06 | Progress Note ---
Assessment and Plan - Patient Problems (1) 39 weeks gestation of Current Visit: Yes Status: Acute (2) Anemia Current Visit: Yes Status: Acute (3) Chronic hypertension Current Visit: Yes Status: Acute (4) Previous section Current Visit: Yes Status: Acute Plan to address problem: Recovering well. Continue care. (5) Preeclampsia in period Current Visit: Yes Status: Acute Plan to address problem: Continue magnesium sulfate until 24hrs. No signs of magnesium toxicity. Blood pressures well controlled on Labetolol. Subjective - Subjective Principal diagnosis: POD #3; s/p Repeat LTCS, Chronic HTN Interval history: 28yo s/p RLTCS now managed for preeclampsia with severe features and is now on magnesium sulfate for seizure prophylaxis. Patient reports: appetite normal, pain well controlled, ambulating normally : doing well Objective - Vital Signs Latest vital signs: Vital Signs Temp Pulse Resp BP BP Pulse Ox 04/28/18 13:49 18 04/28/18 10:44 78 122/79 04/28/18 02:37 98.8 F 78 18 137/81 04/28/18 00:30 98.7 F 75 18 141/85 04/27/18 22:55 98.1 F 78 18 135/75 04/27/18 22:49 78 135/75 04/27/18 21:05 98.5 F 18 04/27/18 19:25 72 143/92 04/27/18 19:24 72 99 04/27/18 19:19 82 98 04/27/18 19:14 81 97 04/27/18 19:10 77 139/86 04/27/18 19:09 81 98 04/27/18 19:04 88 98 04/27/18 18:59 86 97 04/27/18 18:55 78 139/87 04/27/18 18:54 88 98 04/27/18 18:49 78 96 04/27/18 18:44 85 97 04/27/18 18:40 81 154/90 04/27/18 18:39 85 98 04/27/18 18:34 75 98 04/27/18 18:29 77 98 04/27/18 18:25 79 152/83 04/27/18 18:24 85 97 04/27/18 18:19 97 H 97 04/27/18 18:14 83 98 04/27/18 18:10 78 153/82 04/27/18 18:09 80 98 04/27/18 18:04 80 99 04/27/18 17:55 73 179/90 04/27/18 17:52 98.7 F 18 04/27/18 17:18 76 169/93 Intake and Output 04/27/18 04/28/18 04/28/18 23:59 07:59 15:59 Intake Total 100 Output Total 1800 850 Balance 100 -1800 -850 Intake: IV 100 MAGNESIUM SULFATE 4GM/ 100 100ML 4 gm In 100 ml @ 300 mls/hr IV ONCE ONE Rx #:[id number] Output: Urine 1800 850 Indwelling Catheter 1800 850 Other: Total, Output Amount 1200 850 - Labs Labs: Abnormal lab results 04/28/18 Range/Units 01:05 Magnesium 3.80 H (1.7-2.3) mg/dL
[2018-04-28] MEDS: MAGNESIUM SULFATE 40GM/1000ML 40 GM/1,000 ML BAG IV SCH (15:29)
[2018-04-28] MEDS: PERCOCET 5/325 PO PRN (18:42)
[2018-04-29] MEDS: PERCOCET 5/325 PO PRN (00:22)
[2018-04-29] MEDS: IBUPROFEN PO PRN ×3 (00:28→15:32)
[2018-04-29] MEDS: FEOSOL PO SCH ×3 (00:51→10:17)
[2018-04-29] MEDS ORDERED: NORMODYNE PO SCH ×3 (06:55→07:30)
[2018-04-29] MEDS: PROCARDIA XL PO SCH (10:17)
--- NOTE | 2018-04-29 11:15 | Progress Note ---
Assessment and Plan A: POD #5 Preeclampsia (bps still elevated) P: Consulted Dr. Tovar due to elevated BP post MagSO4 Dr. Tovar recommends adding Procardia 30mg PO qd Continue Labetolol 200mg PO BID Subjective - Subjective Date of service: 04/29/18 Principal diagnosis: POD #3; s/p Repeat LTCS, Chronic HTN Patient reports: appetite normal, voiding normally, pain well controlled, flatus, bowel movement, ambulating normally, other (States she is no longer having HAs after stopping iron pills, request to go home today, feels like the stress of a prolonged hospitalization is causing her BPs to stay high) [place]: doing well Objective - Vital Signs Latest vital signs: Vital Signs Temp Pulse Resp BP BP Pulse Ox 04/29/18 08:40 62 175/89 04/29/18 08:39 62 175/89 04/29/18 06:45 62 175/89 95 04/29/18 02:30 98.6 F 72 16 156/89 04/29/18 00:28 18 04/29/18 00:26 72 152/86 97 04/29/18 00:22 18 04/28/18 22:49 68 164/91 98 04/28/18 22:44 70 164/91 04/28/18 19:30 98.8 F 80 18 159/94 04/28/18 18:30 150/94 04/28/18 13:49 18 138/86 04/28/18 12:00 98.6 F 85 18 139/90 Intake and Output 04/28/18 04/29/18 04/29/18 22:59 06:59 14:59 Intake Total 800 480 Output Total 3400 450 Balance -2600 -450 480 Intake: Oral 800 480 Output: Urine 3400 450 Indwelling Catheter 3400 Void 450 Other: Total, Intake Amount 800 480 Total, Output Amount 1600 450 # Voids Void 2 1 - Exam Breasts: Present: normal Cardiovascular: Present: Regular rate Lungs: Present: Clear to auscultation, Normal air movement Abdomen: Present: normal appearance, soft, normal bowel sounds Uterus: Present: normal, firm, fundal height below umbilicus Extremities: Present: edema (+1 pedal and periorbital) Incision: Present: normal, dry, intact
[2018-04-29] MEDS: NORVASC PO SCH (11:45)
[2018-04-29] MEDS: NORMODYNE PO SCH (22:16)
[2018-04-30] MEDS: IBUPROFEN PO PRN (00:17)
[2018-04-30] MEDS: NORMODYNE PO SCH (09:15)
[2018-04-30] MEDS: PROCARDIA XL PO SCH (09:16)
[2018-04-30] MEDS: NORVASC PO SCH (09:16)
[2018-04-30] MEDS: PERCOCET 5/325 PO PRN (09:36)
[2018-04-30] MEDS: FEOSOL PO SCH (09:37)
--- NOTE | 2018-04-30 14:59 | Progress Note ---
Assessment and Plan - Patient Problems (1) 39 weeks gestation of Current Visit: Yes Status: Acute (2) delivery, delivered, current hospitalization Current Visit: No Status: Acute Plan to address problem: Precautions given to avoid heavy lifting for 6 weeks. (3) Eclampsia superimposed on pre-existing hypertension, delivered Current Visit: Yes Status: Acute Plan to address problem: S/P magnesium sulfate. BP stable but mildly elevated. Will discharge patient home today since she has been asymptomatic. She will have Rx for labetolol and norvasc. She was told to go to the office in 3 days for BP check. (4) Anemia due to blood loss, acute Current Visit: Yes Status: Acute Plan to address problem: Patient is given iron BID. Subjective - Subjective Date of service: 04/30/18 Principal diagnosis: POD #6; s/p Repeat LTCS, Chronic HTN Interval history: Patient is a 28 year old who is S/P elective repeat C/section 3 days ago. She has a history of CHTN and her BP was stable during the until 36 weeks. On admission, toxemia labs were normal and her BP was elevated but stable. On POD#3, she developed pre-eclampsia. She was treated with magnesium sulfate and anti-HTN meds for BP control. Her BP remains elevated but stable. She denies any headache or visual changes. She is passing gas and BM.She is tolerating regular diet well. Objective - Vital Signs Latest vital signs: Vital Signs Temp Pulse Resp BP BP Pulse Ox 04/30/18 11:48 97.8 F 84 16 141/91 98 04/30/18 09:16 87 150/90 04/30/18 09:15 87 150/90 04/30/18 08:27 98.4 F 68 20 149/81 98 04/30/18 00:17 18 04/30/18 00:12 97.0 F L 70 18 145/66 96 04/29/18 22:16 89 163/90 04/29/18 21:36 74 18 163/90 98 04/29/18 18:28 98.2 F 89 16 158/92 99 Intake and Output 04/29/18 04/30/18 04/30/18 23:59 07:59 15:59 Intake Total 800 120 Balance 800 120 Intake: Oral 300 120 Intake, Free Water 500 Other: Total, Intake Amount 300 120 Voiding Method Toilet # Voids Void 1 1 - Exam Cardiovascular: Present: Normal S1, Normal S2 Vulva: both: normal Deep Tendon Reflex Grade: Normal +2
--- NOTE | 2018-04-30 15:02 | Discharge Summary ---
Providers - Providers Date of Admission: 04/24/18 05:34 Date of discharge: 04/30/18 Attending physician: LUMA GUERRERO MD Primary care physician: LUMA GUERRERO MD Hospitalization Delivery: Procedure: section complications: other (pre-eclampsia, anemia) Discharge diagnosis: IUP at term delivered Hospital course: Patient is a 28 year old who is S/P elective repeat C/section 3 days ago. She has a history of CHTN and her BP was stable during the until 36 weeks. On admission, toxemia labs were normal and her BP was elevated but stable. On POD#3, she developed pre-eclampsia. She was treated with magnesium sulfate and anti-HTN meds for BP control. Her BP remains elevated but stable. She denies any headache or visual changes. She is passing gas and BM.She is tolerating regular diet well. Objective Condition at discharge: Stable Disposition: DC-01 TO HOME OR SELFCARE - Discharge Diagnoses (1) 39 weeks gestation of Status: Acute (2) delivery, delivered, current hospitalization Status: Acute (3) Eclampsia superimposed on pre-existing hypertension, delivered Status: Acute (4) Anemia due to blood loss, acute Status: Acute Plan - Discharge Medications Prescriptions: Ferrous Sulfate [Feosol 325 MG tab] 325 mg PO BID 30 Days #60 tablet Ibuprofen 800 mg PO Q6H PRN 10 Days #30 tablet MDD 3200mg PRN Reason: Pain, Moderate (4-6) oxyCODONE /ACETAMINOPHEN [Percocet 5/325] 1 tab PO Q4HR PRN 14 Days #30 tab PRN Reason: Pain , Severe (7-10) - Provider Discharge Summary Activity: no sex for 6 weeks, no heavy lifting 4 weeks, no strenuous exercise Additional instructions: [] Smoking cessation referral if applicable(refer to patient education folder for contact #) [] Refer to [facility] Center Booklet Call your doctor immediately for: * Fever > 100.5 * Heavy vaginal bleeding ( >1 pad per hour) * Severe persistent headache * Shortness of breath * Reddened, hot, painful area to leg or breast * Drainage or odor from incision. * Keep incision clean and dry at all times and follow doctor's instructions regarding bathing/showering - Follow up plan Follow up: LUMA GUERRERO MD [Primary Care Provider] - 7 Days
[2018-04-30 17:57] VITALS: BP 143/91
== END 2018-04-30 16:10 | disposition home or self-care (01) | DRG 765 ==
LOC: APU 05:34 → OB 11:17 → LD 04-27 16:34 → APU 04-27 20:35 → OB 04-28 20:13
PROVIDERS: ADMIT Obstetrics & Gynecology; ATTEND Obstetrics & Gynecology
PROC: 10D00Z1 Extraction of Products of Conception, Low, Open Approach (ICD-10-PCS; principal; 2018-04-24)
DX: O34.211 Maternal care for low transverse scar from previous cesarean delivery (principal); D62 Acute posthemorrhagic anemia; O10.92 Unspecified pre-existing hypertension complicating childbirth; E66.9 Obesity, unspecified; O99.214 Obesity complicating childbirth; Z3A.39 39 weeks gestation of pregnancy; Z37.0 Single live birth; O99.02 Anemia complicating childbirth; O14.95 Unspecified pre-eclampsia, complicating the puerperium
CPT/HCPCS: 36415; 81001; 82565; 83615; 83735; 84450; 84460; 84550; 85014; 85018; 85025; 85027; 86850; 86900; 86901; G0378; A6250; J0690; J1170; J2370; J2590; J2765; J3475; J7030; J7120

== ENCOUNTER 2019-10-06 11:36 | Emergency (ER) | payer MEDICAID ==
[2019-10-06] MEDS ORDERED: predniSONE 20 MG TAB PO ONE (13:41)
[2019-10-06] MEDS ORDERED: ACETAMINOPHEN 500 MG TAB PO ONE (13:41)
[2019-10-06] MEDS ORDERED: CETIRIZINE 10 MG TAB PO ONE (13:41)
--- NOTE | 2019-10-06 13:42 | Emergency Department Report ---
ED Rash HPI - HPI Chief Complaint: Skin Rash Stated Complaint: JABD PAIN/SORE THROAT/BREAKOUT Time Seen by Provider: 10/06/19 13:23 Duration: 1 Day Location: Chest, Back, Upper Extremities Rash Symptoms: Yes Itching, No Facial Swelling, No Tongue/Oral Swelling, No Breathing Difficulties, No Choking Sensation, No Wheezing/Dyspnea, No Peeling, No Blistering, No Fever, No Lightheaded, No Malaise, No Myalgias Severity: moderate Other History: 29-year-old -[place] female presents to the emergency room complaining of a rash on her hands and chest back and upper extremities since yesterday. Patient also reports that she has noticed that her blood pressure has been elevated and she has been having headaches. Patient states that she had preeclampsia during her and has not followed up with a primary care provider. Patient admits to coughing. Denies any fevers chills. Patient reports he has not taken anything for her symptoms. ED Review of Systems ROS: Stated complaint: JABD PAIN/SORE THROAT/BREAKOUT Other details as noted in HPI Comment: All other systems reviewed and negative ED Past Medical Hx - Past Medical History Hx Hypertension: Yes (gestational) Hx Congestive Heart Failure: No Hx Diabetes: No Hx Deep Vein Thrombosis: No Hx Renal Disease: No Hx Sickle Cell Disease: No Hx Seizures: No Hx Asthma: No Hx COPD: No Hx HIV: No Additional medical history: PREECLAMPSIA with delivery 08/28/2014 - Surgical History Additional Surgical History: x 2 - Social History Smoking Status: Never Smoker - Medications Home Medications: Home Medications Medication Instructions Recorded Confirmed Last Taken Type Aspirin [Aspirin EC] 1 tab PO DAILY 04/12/18 04/24/18 04/20/18 History Formula Tablet 1 tab PO DAILY 04/12/18 04/24/18 04/23/18 History Ferrous Sulfate [Feosol 325 MG tab] 325 mg PO BID 30 Days #60 tablet 04/24/18 Unknown Rx Ibuprofen [Ibuprofen 800] 800 mg PO Q6H PRN 10 Days #30 04/24/18 Unknown Rx tablet MDD 3200mg oxyCODONE /ACETAMINOPHEN [Percocet 1 tab PO Q4HR PRN 14 Days #30 tab 04/24/18 Unknown Rx 5/325] Ferrous Sulfate [Iron] 325 mg PO BID #60 tablet 04/30/18 Unknown Rx Ibuprofen [Motrin] 800 mg PO Q8HR PRN #30 tablet 04/30/18 Unknown Rx amLODIPine [Norvasc] 5 mg PO DAILY #30 tab 04/30/18 Unknown Rx labetaloL [Labetalol 200mg TAB] 200 mg PO BID #60 tablet 04/30/18 Unknown Rx oxyCODONE /ACETAMINOPHEN [Percocet 1 tab PO Q4HR #14 tab 04/30/18 Unknown Rx 5/325] Amoxicillin/K Clav Tab [Augmentin 1 tab PO Q12HR 10 Days #20 tab 10/06/19 Unknown Rx 875 mg] amLODIPine 5 mg PO DAILY 30 Days #30 tab 10/06/19 Unknown Rx Rash Exam - Exam General: Vital signs noted. No distress. Alert and acting appropriately. HEENT: No Periorbital Edema, No Conjuctival Injection, No Chemosis, No Perioral Edema, No Tongue Edema, No Uvular Edema, No Compromised Airway, No Drooling Lungs: Yes Good Air Exchange (Normal Breath Sounds), No Wheezes, No Ronchi, No Stridor, No Cough, No Labored Respirations, No Retractions, No Use of Accessory Muscles, No Other Abnormal Lung Sounds Heart: Yes Regular, No Murmur Skin: Yes Erythema, Yes Other (Fine sandpaper rash) Other: Positive: Abdomen Normal, Neurologic Normal, Musculoskeletal Normal ED Course Vital Signs 10/06/19 11:49 Temperature 98.1 F Pulse Rate 92 H Respiratory 18 Rate Blood Pressure 152/101 O2 Sat by Pulse 100 Oximetry ED Medical Decision Making - Medical Decision Making 29-year-old -[place] female presents to the emergency room complaining of a rash on her hands and chest back and upper extremities since yesterday. Patient also reports that she has noticed that her blood pressure has been elevated and she has been having headaches. Patient states that she had preeclampsia during her and has not followed up with a primary care provider. Patient admits to coughing. Denies any fevers chills. Patient reports he has not taken anything for her symptoms. Patient will be given prednisone 40 mg p.o. Zyrtec 10 mg p.o. most likely has strep. Patient be placed on Augmentin 875 mg twice daily for 10 days. Patient is encouraged to take Zyrtec 10 mg daily. Patient is also will be started on amlodipine 5 mg daily and to follow-up with a primary care provider. Critical care attestation.: If time is entered above; I have spent that time in minutes in the direct care of this critically ill patient, excluding procedure time. ED Disposition Clinical Impression: Strep pharyngitis with scarlet fever Hypertension Qualifiers: Hypertension type: unspecified Qualified Code(s): I10 - Essential (primary) hypertension Disposition: TO HOME OR SELFCARE Is pt being admited?: No Does the pt Need Aspirin: No Condition: Stable Instructions: Hypertension (ED) Additional Instructions: Complete antibiotics as prescribed. Take blood pressure medicine as prescribed is very important for you to follow-up with her primary care provider. Prescriptions: amLODIPine 5 mg PO DAILY 30 Days #30 tab Amoxicillin/K Clav Tab [Augmentin 875 mg] 1 tab PO Q12HR 10 Days #20 tab Referrals: ABEL PEREZ MD [Primary Care Provider] - 3-5 Days CASTRO SIMMONS MD [Staff Physician] - 3-5 Days
[2019-10-06 15:32] VITALS: BP 152/96
== END 2019-10-06 15:27 | disposition home or self-care (01) ==
LOC: ED 11:36
DX: J02.0 Streptococcal pharyngitis (principal); A38.9 Scarlet fever, uncomplicated; I10 Essential (primary) hypertension; Z79.82 Long term (current) use of aspirin; Z79.899 Other long term (current) drug therapy
CPT/HCPCS: 99282; J7512